=== PATIENT | female | born 1960 ===

== ENCOUNTER 2018-12-24 00:08 | Emergency (ER) | payer OTHER ==
[2018-12-24] MEDS ORDERED: Sodium Chloride 0.9% 1,000 ML IV STA (01:07)
[2018-12-24 01:50] LABS: ALB/GLOB RATIO 1.1 (1.0-2.1); ALBUMIN 3.8 g/dL (3.5-5.0); ALT/SGPT 20 U/L (9-52); AST/SGOT 20 U/L (14-36); BLOOD UREA NITROGEN 13 mg/dl (7-17); GFR NON-AFRICAN AMERICAN > 60
[2018-12-24 01:51] LABS: BASO % 0.5 % (0.0-2.0); EOS # 0.1 K/uL (0.0-0.7); EOS % 1.6 % (0.0-4.0); HEMOGLOBIN 11.3 g/dL (12.0-16.0); LYMPH # 2.3 K/uL (1.0-4.3); MEAN CELL VOLUME 81.6 fl (81.0-99.0); MEAN CORPUSCULAR HEMOGLOBIN 25.9 pg (27.0-31.0); MEAN CORPUSCULAR HGB CONC 31.7 g/dL (33.0-37.0); MEAN PLATELET VOLUME 9.1 fl (7.2-11.7); MONO # 0.7 K/uL (0.0-0.8); MONO % 9.9 % (0.0-10.0); NEUT # 3.5 K/uL (1.8-7.0); NRBC % 0.1 % (0.0-0.0); RBC 4.35 Mil/uL (3.80-5.20); RED CELL DISTRIBUTION WIDTH 15.1 % (11.5-14.5); WHITE BLOOD COUNT 6.6 K/uL (4.8-10.8)
--- NOTE | 2018-12-24 02:00 | ED PDOC ---
HPI: Chest Pain Time Seen by Provider: 12/24/18 00:39 Chief Complaint (Nursing): Palpitations Chief Complaint (Provider): Tremor History Per: Patient History/Exam Limitations: no limitations Onset/Duration Of Symptoms: Hrs (x 2) Current Symptoms Are (Timing): Still Present Quality: "Pain" Additional Complaint(s): 58 year old female with sudden onset left hand shaking and chest pressure that began yesterday at 10:30 pm, 2 hours prior to arrival. Patient has a history of well controlled diabetes and HTN. She reports improvement of symptoms since arrival to the ED. Denies shortness of breath and fever. PMD: Dr. Zamarripa Past Medical History Reviewed: Historical Data, Nursing Documentation, Vital Signs Vital Signs: Last Vital Signs Temp 98.2 F 12/24/18 00:16 Pulse 83 12/24/18 01:39 Resp 18 12/24/18 00:16 BP 149/90 12/24/18 00:16 Pulse Ox 100 12/24/18 00:16 - Medical History PMH: HTN, Hyperlipidemia - Surgical History Surgical History: No Surg Hx - Family History Family History: States: Unknown Family Hx - Allergies Allergies/Adverse Reactions: Allergies Allergy/AdvReac Type Severity Reaction Status Date / Time No Known Allergies Allergy Verified 12/24/18 00:16 Review of Systems ROS Statement: Except As Marked, All Systems Reviewed And Found Negative Cardiovascular: Positive for: Chest Pain (chest pressure) Neurological: Positive for: Other (left hand shaking) Physical Exam - Reviewed Nursing Documentation Reviewed: Yes Vital Signs Reviewed: Yes - Physical Exam Appears: Positive for: Non-toxic, No Acute Distress Head Exam: Positive for: ATRAUMATIC, NORMAL INSPECTION, NORMOCEPHALIC Skin: Positive for: Normal Color, Warm, Dry Eye Exam: Positive for: EOMI, Normal appearance, PERRL Neck: Positive for: Normal, Painless ROM, Supple Cardiovascular/Chest: Positive for: Regular Rate, Rhythm. Negative for: Murmur Respiratory: Positive for: Normal Breath Sounds. Negative for: Respiratory Distress Gastrointestinal/Abdominal: Positive for: Normal Exam, Soft. Negative for: Tenderness Back: Positive for: Normal Inspection. Negative for: L CVA Tenderness, R CVA Tenderness Extremity: Positive for: Normal ROM (x 4). Negative for: Deformity Neurological/Psych: Positive for: Awake, Alert, Normal Tone, Oriented (x 3). Negative for: Motor/Sensory Deficits - Laboratory Results Result Diagrams: 12/24/18 01:30 12/24/18 01:30 - ECG O2 Sat by Pulse Oximetry: 100 (RA) Pulse Ox Interpretation: Normal Medical Decision Making Medical Decision Makin:06 MDM: workup for left arm tremor with chest pain, r/o cardiac etiology of symptoms Labs, including troponin, CXR and aspirin Likely to be discharge home if labs are normal. 03:09 Labs and chest x-ray unremarkable. Patient is stable for discharge and to follow up with PMD. Scribe Attestation: Documented by Kelin Kay, acting as a scribe Norah Adler MD Provider Scribe Attestation: All medical record entries made by the Scribe were at my direction and personally dictated by me. I have reviewed the chart and agree that the record accurately reflects my personal performance of the history, physical exam, medical decision making, and the department course for this patient. I have also personally directed, reviewed, and agree with the discharge instructions and disposition. Disposition - Clinical Impression Clinical Impression: Chest pain - Patient ED Disposition Is Patient to be Admitted: No - Disposition Disposition: Routine/Home Disposition Time: 03:09 Condition: IMPROVED Additional Instructions: Follow up with primary medical doctor. Continue to take home medications as prescribed. Return to the emergency department if symptoms worsen or new symptoms develop. Instructions: Chest Pain (DC) Forms: [employer] (Mauritanian) Print Language: BELIZEAN
[2018-12-24 03:32] LABS: URINE BACTERIA RARE (<OCC); URINE BILIRUBIN NEGATIVE (NEGATIVE); URINE BLOOD NEGATIVE (NEGATIVE); URINE CLARITY CLEAR (Clear); URINE COLOR COLORLESS (YELLOW); URINE GLUCOSE (UA) NEG (NEGATIVE); URINE LEUKOCYTE ESTERASE NEG Leu/uL (Negative); URINE PROTEIN NEGATIVE (NEGATIVE); URINE UROBILINOGEN 0.2-1.0 mg/dL (0.2-1.0)
[2018-12-24 07:10] VITALS: BP 125/75; PULSE 87; RESP 16; TEMP 98
--- NOTE | 2018-12-24 09:28 | CARD ---
APPROVED REPORT Date of service: 12/24/2018 EKG Measurement Heart [id number] <Conclusion> Normal sinus rhythm Normal ECG
--- NOTE | 2018-12-24 11:46 | RAD ---
Date of service: 12/24/2018 HISTORY: possible admission COMPARISON: No prior. TECHNIQUE: 1 view obtained. FINDINGS: LUNGS: Lung volumes lower limits of normal. Large body habitus noted. No dense consolidation. Probable summation of soft tissues over the lateral left hemithorax. Left hemidiaphragm contour maintained. PLEURA: No significant pleural effusion identified, no pneumothorax apparent. CARDIOVASCULAR: No aortic atherosclerotic calcification present. Normal cardiac size. Cardiomegaly. Possible concomitant mild pulmonary venous congestion. Chronicity unknown. OSSEOUS STRUCTURES: Thoracic spondylosis. VISUALIZED UPPER ABDOMEN: Normal. OTHER FINDINGS: None. IMPRESSION: Limited exam and portable technique in this large body habitus patient. No dense consolidation. Cardiomegaly.-chronicity unknown. Possible concomitant mild pulmonary venous congestion. Other findings as above.
[2018-12-28 17:16] VITALS: O2SAT 100
== END 2018-12-24 07:44 | disposition home or self-care (01) ==
LOC: H.ER 00:08
DX: R07.89 Other chest pain (principal); E11.9 Type 2 diabetes mellitus without complications; E78.5 Hyperlipidemia, unspecified; I10 Essential (primary) hypertension
CPT/HCPCS: 71045; 80053; 81003; 82948; 84484; 85025; 93005; 96360; 99283; J7030